=== PATIENT | male | born 1945 | race Caucasian/White ===

== ENCOUNTER → 2017-11-17 | Outpatient (CLI) | payer MEDICARE ==
[~2017-11-17] MED LIST: CIPRO500 MG PO; LISINOPRIL10 MG PO; PERCOCET 5/31 TABLET PO
== END | disposition home or self-care (01) ==
LOC: CDC 11:34
DX: G56.22 Lesion of ulnar nerve, left upper limb (principal); M79.642 Pain in left hand
CPT/HCPCS: 93000